=== PATIENT | female | born 1930 | race Caucasian/White ===

== ENCOUNTER 2018-12-05 10:22 | Observation (INO) | payer MEDICARE, BC ==
--- NOTE | 2018-12-05 10:48 | EDM.PDOC ---
ED HPI GENERAL MEDICAL PROBLEM - General Stated Complaint: LOSS OF CONSCIOUSNESS Time Seen by Provider: 12/05/18 10:45 Source of Information: Reports: Patient History Limitations: Reports: No Limitations - History of Present Illness INITIAL COMMENTS - FREE TEXT/NARRATIVE: 88-year-old female who reports that for the last 2-3 days she has been feeling "yucky". Apparently, this means that she has had decreased energy and she has had some nausea. She had vomiting times one yesterday afternoon and this morning at approximately 9:45 AM, she had a syncopal episode that lasted for about 3 minutes. No seizure activity was noted. She apparently did not fall and hit her head. She was sitting when this occurred. She has had no shortness of breath. She's had no chest pain. She has had persisting nausea. No abdominal pain. No known bowel movement for the past 2 days. No reports of dysuria or hematuria. The history comes from EMS report and from the patient's sons report and some from the patient but the patient is a rather poor historian. No fevers or chills. She has no pain now. She states she would rate her pain as a 0/10. She does report that she feels bad all over and weak. There are no other associated signs or symptoms. There are no other modifying factors. Onset: Other (Lasted 3 days. 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: Other Medication(s) (Patient was given Zofran on the way in by EMS with no apparent relief of her nausea.) - Related Data Allergies Allergy/AdvReac Type Severity Reaction Status Date / Time No Known Allergies Allergy Verified 12/05/18 10:43 Home Meds: Home Meds Aspirin 1 tab PO DAILY 12/05/18 [History] Calcium Carb&Cit/D3/Phytostrol [Citracal D + Heart Health] 1 tab PO DAILY [History] Cholestyramine/Sucrose [Cholestyramine] 1 packet PO DAILY 12/05/18 [History] Cyanocobalamin (Vitamin B12) [Vitamin B12] 1 injection IM ASDIRECTED 12/05/18 [ History] Ferrous Sulfate 1 tab PO DAILY 12/05/18 [History] Furosemide 1 tab PO BID 12/05/18 [History] Levothyroxine Sodium [Levo-T] 1 tab PO DAILY 12/05/18 [History] Loperamide HCl [Loperamide] 1 tab PO TID PRN 12/05/18 [History] Multivitamins [Tab-A-Karen] 1 tab PO DAILY 12/05/18 [History] Omeprazole 1 tab PO BID 12/05/18 [History] Potassium Chloride 1 tab PO DAILY 12/05/18 [History] atorvaSTATin Calcium [Lipitor] 1 tab PO BEDTIME 12/05/18 [History] metOLazone [Zaroxolyn] 1 tab PO ASDIRECTED 12/05/18 [History] Past Medical History HEENT History: Reports: Other (See Below) (BPPV) Cardiovascular History: Reports: Heart Failure, High Cholesterol, Hypertension, Other (See Below) (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) Gastrointestinal History: Reports: GERD Neurological History: Reports: CVA Endocrine/Metabolic History: Reports: Hypothyroidism Hematologic History: Reports: Anemia (With recent blood transfusion within the past 3 months.) - Past Surgical History GI Surgical History: Reports: Colonoscopy Musculoskeletal Surgical History: Reports: Hip Replacement (Bilateral), Knee Replacement (Bilateral) Social & Family History - Tobacco Use Smoking Status *Q: Never Smoker - Alcohol Use Alcohol Use History: No - Living Situation & Occupation Occupation: Retired Social History Comment: She is living in the [facility] for the past 3 months. She was living independently prior to this. Patient is a DNR/DNI. ED ROS GENERAL - Review of Systems Review Of Systems: See Below Constitutional: Reports: Malaise, Weakness, Fatigue HEENT: Reports: Other (Dry mouth) Respiratory: Reports: No Symptoms Cardiovascular: Reports: Syncope GI/Abdominal: Reports: Nausea, Vomiting : Reports: No Symptoms Musculoskeletal: Reports: Other (Chronic leg swelling that is less now) Skin: Reports: No Symptoms Neurological: Reports: Syncope. Denies: Headache Hematologic/Lymphatic: Reports: No Symptoms (She is on no chronic anticoagulation.) Immunologic: Reports: No Symptoms ED EXAM, GENERAL - Physical Exam Exam: See Below Free Text/Narrative:: There were no orthostatic changes in the patient's blood pressure or pulse. Exam Limited By: No Limitations General Appearance: Alert, WD/WN, Moderate Distress Eye Exam: Bilateral Eye: EOMI, Normal Inspection, PERRL Ears: Normal External Exam, Hearing Grossly Normal Ear Exam: Bilateral Ear: Auricle Normal Nose: Normal Inspection, Normal Mucosa, No Blood Throat/Mouth: Normal Voice, No Airway Compromise, Other (Dry mucous membranes) Head: Atraumatic, Normocephalic Neck: Normal Inspection, Supple, Non-Tender, Full Range of Motion Respiratory/Chest: No Respiratory Distress, Lungs Clear, Normal Breath Sounds, No Accessory Muscle Use, Chest Non-Tender Cardiovascular: Normal Peripheral Pulses, Regular Rate, Rhythm, No JVD, Systolic Murmur Peripheral Pulses: 2+: Radial (L), Radial (R) GI/Abdominal: Normal Bowel Sounds, Soft, Non-Tender (Palpation does provoke nausea, however.), No Mass Rectal (Female) Exam: Heme + Stool, Other (Maroon stool that was Hemoccult positive) Back Exam: Normal Inspection Extremities: Normal Range of Motion, Non-Tender, Normal Capillary Refill, Pedal Edema, Other (Both feet are wrapped with compression wraps.) Neurological: Alert, Oriented, CN II-XII Intact, No Motor/Sensory Deficits Skin Exam: Warm, Dry, Intact, Normal Color, No Rash EKG INTERPRETATION EKG Date: 12/05/18 Time: 10:30 Rhythm: NSR Rate (Beats/Min): 77 [place]: LAD-Left [place] Deviation P-Wave: Present QRS: LBBB ST-T: Other (Nonspecific ST-T changes) QT: Prolonged Comparison: NA - No Prior EKG (No old EKG for comparison.) Course - Vital Signs Last Recorded V/S: Last Vital Signs Temp 36.8 C 12/05/18 20:14 Pulse 84 12/05/18 20:14 Resp 18 12/05/18 20:14 BP 90/56 L 12/05/18 20:14 Pulse Ox 92 L 12/05/18 20:14 Orthostatic Blood Pressure [ 99/56 Standing] Orthostatic Blood Pressure [ 104/48 Sitting] Orthostatic Blood Pressure [ 106/45 Supine] - Orders/Labs/Meds Orders: Active Orders 24 hr Category Date Time Status EKG Documentation Completion [RC] ASDIRECTED Care 12/05/18 11:02 Active Orthostatic Vital Signs [RC] ASDIRECTED Care 12/05/18 11:04 Active Chest 1V Frontal [CR] Stat Exams 12/05/18 11:00 Taken CULTURE URINE [RM] Stat Lab 12/05/18 11:35 Received EKG 12 Lead [EK] Routine Ther 12/05/18 11:00 Ordered Medication Orders Acetaminophen (Tylenol) 650 mg PO Q4H PRN PRN Reason: Pain (Mild 1-3)/fever Furosemide (Lasix) 80 mg PO BID@0800,1400 [facility] Last Admin: 12/05/18 17:04 Dose: 80 mg Promethazine HCl 6.25 mg/ (Sodium Chloride) 50.25 mls @ 200 mls/hr IV Q6H PRN PRN Reason: Nausea/Vomiting Sodium Chloride (Normal Saline) 1,000 mls @ 50 mls/hr IV ASDIRECTED [facility] Last Admin: 12/05/18 12:48 Dose: 50 mls/hr Sodium Chloride (Normal Saline) 250 mls @ 100 mls/hr IV ASDIRECTED [facility] Last Admin: 12/05/18 17:56 Dose: 100 mls/hr Admin: 12/05/18 15:01 Dose: 100 mls/hr Levothyroxine Sodium (Levothyroxine) 175 mcg PO DAILY@0600 [facility] Pantoprazole Sodium (Protonix Iv) 40 mg IVPUSH Q24H [facility] Potassium Chloride (Klor-Con M20) 20 meq PO TID [facility] Last Admin: 12/05/18 20:30 Dose: 20 meq Admin: 12/05/18 17:03 Dose: 20 meq Sodium Chloride (Saline Flush) 10 ml FLUSH ASDIRECTED PRN PRN Reason: Keep Vein Open Labs: Laboratory Tests 12/05/18 12/05/18 12/05/18 Range/Units 10:20 10:20 10:20 WBC 10.4 (4.5-12.0) X10-3/uL RBC 2.48 L (3.23-5.20) x10(6)uL Hgb 7.3 L (11.5-15.5) g/dL Hct 21.9 L* (30.0-51.3) % MCV 88.6 (80-96) fL MCH 29.5 (27.7-33.6) pg MCHC 33.3 (32.2-35.4) g/dL RDW 14.3 (11.5-15.5) % Plt Count 318 (125-369) X10(3)uL MPV 7.6 (7.4-10.4) fL Neut % (Auto) 68.8 (46-82) % Lymph % (Auto) 15.2 (13-37) % [place] % (Auto) 14.4 H (4-12) % Eos % (Auto) 1 (1.0-5.0) % Baso % (Auto) 0 (0-2) % Neut # (Auto) 7.2 (1.6-8.3) # Lymph # (Auto) 1.6 (0.6-5.0) # [place] # (Auto) 1.5 H (0.0-1.3) # Eos # (Auto) 0.1 (0.0-0.8) # Baso # (Auto) 0.0 (0.0-0.2) # PT (8.7-11.1) INR (0.89-1.13) Sodium 135 (135-145) mmol/L Potassium 2.7 L* (3.5-5.3) mmol/L Chloride 96 L (100-110) mmol/L Carbon Dioxide 31 (21-32) mmol/L BUN 36 H (7-18) mg/dL Creatinine 1.3 H (0.55-1.02) mg/dL Est Cr Clr Drug Dosing 26.33 mL/min Estimated GFR (MDRD) 39 L (>60) BUN/Creatinine Ratio 27.7 H (9-20) Glucose 188 H (80-116) mg/dL Calcium 9.0 (8.6-10.2) mg/dL Magnesium 2.5 (1.8-2.5) mg/dL Total Bilirubin 0.5 (0.1-1.3) mg/dL AST 21 (5-25) IU/L ALT 27 (12-36) U/L Alkaline Phosphatase 92 (56-112) IU/L Troponin I 0.082 H* (<0.017-0.056) ng/mL Total Protein 6.9 (6.0-8.0) g/dL Albumin 3.3 (3.2-4.6) g/dL Globulin 3.6 g/dL Albumin/Globulin Ratio 0.9 Urine Color (YELLOW) Urine Appearance (CLEAR) Urine pH (5.0-6.5) Ur Specific [place] (1.010-1.025) Urine Protein (NEGATIVE) mg/dL Urine Glucose (UA) (NORMAL) mg/dL Urine Ketones (NEGATIVE) mg/dL Urine Occult Blood (NEGATIVE) Urine Nitrite (NEGATIVE) Urine Bilirubin (NEGATIVE) Urine Urobilinogen (NEGATIVE) mg/dL Ur Leukocyte Esterase (NEGATIVE) Urine RBC (0-5) Urine WBC (0-5) Ur Squamous Epith Cells (NS,R,O) Urine Bacteria (NS) 12/05/18 12/05/18 Range/Units 10:25 11:35 WBC (4.5-12.0) X10-3/uL RBC (3.23-5.20) x10(6)uL Hgb (11.5-15.5) g/dL Hct (30.0-51.3) % MCV (80-96) fL MCH (27.7-33.6) pg MCHC (32.2-35.4) g/dL RDW (11.5-15.5) % Plt Count (125-369) X10(3)uL MPV (7.4-10.4) fL Neut % (Auto) (46-82) % Lymph % (Auto) (13-37) % [place] % (Auto) (4-12) % Eos % (Auto) (1.0-5.0) % Baso % (Auto) (0-2) % Neut # (Auto) (1.6-8.3) # Lymph # (Auto) (0.6-5.0) # [place] # (Auto) (0.0-1.3) # Eos # (Auto) (0.0-0.8) # Baso # (Auto) (0.0-0.2) # PT 9.9 (8.7-11.1) INR 1.02 (0.89-1.13) Sodium (135-145) mmol/L Potassium (3.5-5.3) mmol/L Chloride (100-110) mmol/L Carbon Dioxide (21-32) mmol/L BUN (7-18) mg/dL Creatinine (0.55-1.02) mg/dL Est Cr Clr Drug Dosing mL/min Estimated GFR (MDRD) (>60) BUN/Creatinine Ratio (9-20) Glucose (80-116) mg/dL Calcium (8.6-10.2) mg/dL Magnesium (1.8-2.5) mg/dL Total Bilirubin (0.1-1.3) mg/dL AST (5-25) IU/L ALT (12-36) U/L Alkaline Phosphatase (56-112) IU/L Troponin I (<0.017-0.056) ng/mL Total Protein (6.0-8.0) g/dL Albumin (3.2-4.6) g/dL Globulin g/dL Albumin/Globulin Ratio Urine Color Yellow (YELLOW) Urine Appearance Clear (CLEAR) Urine pH 7.0 H (5.0-6.5) Ur Specific [place] 1.010 (1.010-1.025) Urine Protein Negative (NEGATIVE) mg/dL Urine Glucose (UA) Normal (NORMAL) mg/dL Urine Ketones Negative (NEGATIVE) mg/dL Urine Occult Blood Large H (NEGATIVE) Urine Nitrite Negative (NEGATIVE) Urine Bilirubin Negative (NEGATIVE) Urine Urobilinogen Normal (NEGATIVE) mg/dL Ur Leukocyte Esterase Negative (NEGATIVE) Urine RBC 10-20 H (0-5) Urine WBC 0-5 (0-5) Ur Squamous Epith Cells Few H (NS,R,O) Urine Bacteria Few H (NS) Meds: Medications Generic Name Dose Route Start Last Admin Trade Name Arvindq PRN Reason Stop Dose Admin Acetaminophen 650 mg 12/05/18 12:03 Tylenol PO Q4H PRN Pain (Mild 1-3)/fever Furosemide 80 mg 12/05/18 16:45 12/05/18 17:04 Lasix PO 80 mg BID@0800,1400 [facility] Administration Promethazine HCl 6.25 mg/ 50.25 mls @ 200 mls/hr 12/05/18 12:03 Sodium Chloride IV Q6H PRN Nausea/Vomiting Sodium Chloride 1,000 mls @ 50 mls/hr 12/05/18 12:15 12/05/18 12:48 Normal Saline IV 50 mls/hr ASDIRECTED [facility] Administration Sodium Chloride 250 mls @ 100 mls/hr 12/05/18 14:45 12/05/18 17:56 Normal Saline IV 100 mls/hr ASDIRECTED [facility] Administration Levothyroxine Sodium 175 mcg 12/06/18 06:00 Levothyroxine PO DAILY@0600 [facility] Pantoprazole Sodium 40 mg 12/06/18 12:00 Protonix Iv IVPUSH Q24H [facility] Potassium Chloride 20 meq 12/05/18 16:00 12/05/18 20:30 Klor-Con M20 PO 20 meq TID [facility] Administration Sodium Chloride 10 ml 12/05/18 12:46 Saline Flush FLUSH ASDIRECTED PRN Keep Vein Open Discontinued Medications Generic Name Dose Route Start Last Admin Trade Name Freq PRN Reason Stop Dose Admin Sodium Chloride 500 mls @ 999 mls/hr 12/05/18 11:03 12/05/18 11:52 Normal Saline IV 12/05/18 11:33 999 mls/hr .BOLUS ONE Administration Potassium Chloride 10 meq/ 100 mls @ 100 mls/hr 12/05/18 11:46 12/05/18 12:11 Premix IV 12/05/18 12:45 100 mls/hr ONETIME ONE Administration Sodium Chloride 250 mls @ 100 mls/hr 12/05/18 12:15 Normal Saline IV ASDIRECTED [facility] Metoclopramide HCl 10 mg 12/05/18 11:03 12/05/18 11:52 Reglan IVPUSH 12/05/18 11:04 10 mg ONETIME ONE Administration Pantoprazole Sodium 40 mg 12/05/18 11:46 12/05/18 12:15 Protonix Iv IVPUSH 12/05/18 11:47 40 mg ONETIME ONE Administration Potassium Chloride 20 meq 12/05/18 11:46 12/05/18 12:30 Potassium Chloride Solution PO 12/05/18 11:47 20 meq ONETIME ONE Administration - Re-Assessments/Exams Free Text/Narrative Re-Assessment/Exam: 12/05/18 11:45: Patient is feeling improved after IV fluids and Reglan IV. She has remained vitally stable. She did have a maroon colored stool which was Hemoccult positive. Patient with heme-positive stool and hemoglobin of 7. Her potassium was also 2.7. She will need admission for transfusion of packed red blood cells and for correction of her hypokalemia. She has been given Protonix IV and will be given oral potassium replacement and IV potassium replacement. She has been typed and crossed for 2 units of packed red blood cells to be transfused over time. 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 He reiterates with me that the patient is a DNR/DNI and she would want comfort measures only. They are agreeable to admission to our facility for management of these problems. Therefore I will discuss the patient's case with Dr. Ge for admission. 12/05/18 12:10: I have discussed the patient's case with Dr. Ge. He will admit the patient and will see the patient on the floor. I have placed interim admission orders with the order for transfusing 2 units of packed red blood cells. The patient and her son are in agreement with plans for admission. Departure - Departure Time of Disposition: 12:15 Disposition: Refer to Observation Condition: Fair Clinical Impression: Blood loss anemia, Hypokalemia, Elevated troponin Syncope Qualifiers: Syncope type: unspecified Qualified Code(s): R55 - Syncope and collapse GI hemorrhage Qualifiers: GI bleed type/associated pathology: unspecified gastrointestinal hemorrhage type Qualified Code(s): K92.2 - Gastrointestinal hemorrhage, unspecified - Discharge Information - My Orders Last 24 Hours: My Active Orders 12/05/18 11:00 Chest 1V Frontal [CR] Stat EKG 12 Lead [EK] Routine 12/05/18 11:02 EKG Documentation Completion [RC] ASDIRECTED 12/05/18 11:04 Orthostatic Vital Signs [RC] ASDIRECTED 12/05/18 11:35 CULTURE URINE [RM] Stat - Assessment/Plan Last 24 Hours: My Active Orders 12/05/18 11:00 Chest 1V Frontal [CR] Stat EKG 12 Lead [EK] Routine 12/05/18 11:02 EKG Documentation Completion [RC] ASDIRECTED 12/05/18 11:04 Orthostatic Vital Signs [RC] ASDIRECTED 12/05/18 11:35 CULTURE URINE [RM] Stat
[2018-12-05] MEDS ORDERED: Metoclopramide 10 MG/2 ML SDV IVPUSH ONE (11:03)
[2018-12-05] MEDS ORDERED: Sodium Chloride 0.9% 500 ML IV ONE (11:03)
[2018-12-05] MEDS ORDERED: Potassium Chloride 10% 20 MEQ/15 ML Soln 15 ML UD Cup PO ONE (11:46)
[2018-12-05] MEDS ORDERED: Potassium Chloride 10 MEQ in Premix Bag 1 BAG IV ONE (11:46)
[2018-12-05] MEDS ORDERED: Pantoprazole 40 MG Vial IVPUSH ONE (11:46)
[2018-12-05] MEDS ORDERED: Acetaminophen 325 MG Tab PO PRN (12:03)
[2018-12-05] MEDS ORDERED: Promethazine 6.25 MG in Sodium Chloride 0.9% 50 ML IV PRN (12:03)
[2018-12-05] MEDS ORDERED: Sodium Chloride 0.9% 250 ML IV SCH (12:15)
[2018-12-05] MEDS ORDERED: Sodium Chloride 0.9% 1,000 ML IV SCH (12:15)
[2018-12-05] MEDS ORDERED: Sodium Chloride 0.9% 10 ML Syringe FLUSH PRN (12:46)
--- NOTE | 2018-12-05 13:48 | PCM.HP.2 ---
H&P History of Present Illness - General Date of Service: 12/05/18 Admit Problem/Dx: Admission Diagnosis/Problem Admission Diagnosis/Problem Anemia due to blood loss Source of Information: Patient, Old Records History Limitations: Reports: No Limitations, Uncooperative - History of Present Illness Initial Comments - Free Text/Narative: This is 88-year-old female patient that recently moved from [facility] to be closer to her son. She delivered the [place] home. For the last 3 days she's felt . She has had nausea, vomiting and then she passed out for 3 minutes today. She is brought to the ER found to have a hemoglobin of 7. She denies chest pain although occasionally she says her chest get tight but hasn't recently. She says she was given some at the home and she didn't have a BM for several days and strained that she had some bleeding. Her son told the nurse that she had a EGD several years ago that was negative. 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 She denies abdominal pain, fevers, chills. She does take aspirin a day according to her records - Related Data Allergies/Adverse Reactions: Allergies Allergy/AdvReac Type Severity Reaction Status Date / Time No Known Allergies Allergy Verified 12/05/18 10:43 Home Medications: Home Meds Aspirin 1 tab PO DAILY 12/05/18 [History] Calcium Carb&Cit/D3/Phytostrol [Citracal D + Heart Health] 1 tab PO DAILY [History] Cholestyramine/Sucrose [Cholestyramine] 1 packet PO DAILY 12/05/18 [History] Cyanocobalamin (Vitamin B12) [Vitamin B12] 1 injection IM ASDIRECTED 12/05/18 [ History] Ferrous Sulfate 1 tab PO DAILY 12/05/18 [History] Furosemide 1 tab PO BID 12/05/18 [History] Levothyroxine Sodium [Levo-T] 1 tab PO DAILY 12/05/18 [History] Loperamide HCl [Loperamide] 1 tab PO TID PRN 12/05/18 [History] Multivitamins [Tab-A-Karen] 1 tab PO DAILY 12/05/18 [History] Omeprazole 1 tab PO BID 12/05/18 [History] Potassium Chloride 1 tab PO DAILY 12/05/18 [History] atorvaSTATin Calcium [Lipitor] 1 tab PO BEDTIME 12/05/18 [History] metOLazone [Zaroxolyn] 1 tab PO ASDIRECTED 12/05/18 [History] Past Medical History HEENT History: Reports: Other (See Below) (BPPV) Cardiovascular History: Reports: Heart Failure, High Cholesterol, Hypertension, Other (See Below) (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) Other Cardiovascular History: stenosis Gastrointestinal History: Reports: [employer] History: Reports: Other OB/BYN History: Musculoskeletal History: Reports: Arthritis Neurological History: Reports: CVA Endocrine/Metabolic History: Reports: Hypothyroidism Hematologic History: Reports: Anemia (With recent blood transfusion within the past 3 months.) Other Hematologic History: pernicious anemia - Infectious Disease History Infectious Disease History: Reports: Mumps - Past Surgical History GI Surgical History: Reports: Colonoscopy Musculoskeletal Surgical History: Reports: Hip Replacement (Bilateral), Knee Replacement (Bilateral) Social & Family History - Family History Family Medical History: Noncontributory - Tobacco Use Smoking Status *Q: Never Smoker - Caffeine Use Caffeine Use: Reports: Coffee, Tea - Recreational Drug Use Recreational Drug Use: No - Living Situation & Occupation Occupation: Retired H&P Review of Systems - Review of Systems: Review Of Systems: See Below General: Reports: No Symptoms HEENT: Reports: No Symptoms Pulmonary: Reports: No Symptoms Cardiovascular: Reports: No Symptoms Gastrointestinal: Reports: Hematochezia, Nausea, Vomiting Genitourinary: Reports: No Symptoms Musculoskeletal: Reports: No Symptoms Skin: Reports: No Symptoms Psychiatric: Reports: No Symptoms Neurological: Reports: No Symptoms Hematologic/Lymphatic: Reports: No Symptoms Immunologic: Reports: No Symptoms Exam - Exam Exam: See Below - Vital Signs Vital Signs: Last Vital Signs Temp 96.4 F 12/05/18 10:22 Pulse 81 12/05/18 12:45 Resp 15 12/05/18 12:45 BP 97/37 L 12/05/18 12:45 Pulse Ox 97 12/05/18 12:45 Orthostatic Blood Pressure [ 99/56 Standing] Orthostatic Blood Pressure [ 104/48 Sitting] Orthostatic Blood Pressure [ 106/45 Supine] Weight: 170 lb - Exam General: Alert, Oriented, Cooperative HEENT: Mucosa Moist & [place], Posterior Pharynx Clear Neck: Supple, Trachea Midline. No: Carotid Bruit Lungs: Clear to Auscultation, Normal Respiratory Effort Cardiovascular: Regular Rate, Regular Rhythm, Systolic Murmur GI/Abdominal Exam: Normal Bowel Sounds, Soft, Non-Tender, No Organomegaly, No Distention, No Abnormal Bruit, No Mass Extremities: Normal Inspection, No Pedal Edema Skin: Warm, Intact Neurological: Normal Tone Neuro Extensive - Mental Status: Alert, Normal Mood/Affect Psychiatric: Alert, Normal Affect, Normal Mood - Patient Data Lab Results Last 24 hrs: Laboratory Results - last 24 hr 12/05/18 12/05/18 12/05/18 Range/Units 10:20 10:20 10:20 WBC 10.4 (4.5-12.0) X10-3/uL RBC 2.48 L (3.23-5.20) x10(6)uL Hgb 7.3 L (11.5-15.5) g/dL Hct 21.9 L* (30.0-51.3) % MCV 88.6 (80-96) fL MCH 29.5 (27.7-33.6) pg MCHC 33.3 (32.2-35.4) g/dL RDW 14.3 (11.5-15.5) % Plt Count 318 (125-369) X10(3)uL MPV 7.6 (7.4-10.4) fL Neut % (Auto) 68.8 (46-82) % Lymph % (Auto) 15.2 (13-37) % Pershing % (Auto) 14.4 H (4-12) % Eos % (Auto) 1 (1.0-5.0) % Baso % (Auto) 0 (0-2) % Neut # (Auto) 7.2 (1.6-8.3) # Lymph # (Auto) 1.6 (0.6-5.0) # Pershing # (Auto) 1.5 H (0.0-1.3) # Eos # (Auto) 0.1 (0.0-0.8) # Baso # (Auto) 0.0 (0.0-0.2) # PT (8.7-11.1) INR (0.89-1.13) Sodium 135 (135-145) mmol/L Potassium 2.7 L* (3.5-5.3) mmol/L Chloride 96 L (100-110) mmol/L Carbon Dioxide 31 (21-32) mmol/L BUN 36 H (7-18) mg/dL Creatinine 1.3 H (0.55-1.02) mg/dL Est Cr Clr Drug Dosing 26.33 mL/min Estimated GFR (MDRD) 39 L (>60) BUN/Creatinine Ratio 27.7 H (9-20) Glucose 188 H (80-116) mg/dL Calcium 9.0 (8.6-10.2) mg/dL Magnesium 2.5 (1.8-2.5) mg/dL Total Bilirubin 0.5 (0.1-1.3) mg/dL AST 21 (5-25) IU/L ALT 27 (12-36) U/L Alkaline Phosphatase 92 (56-112) IU/L Troponin I 0.082 H* (<0.017-0.056) ng/mL Total Protein 6.9 (6.0-8.0) g/dL Albumin 3.3 (3.2-4.6) g/dL Globulin 3.6 g/dL Albumin/Globulin Ratio 0.9 Urine Color (YELLOW) Urine Appearance (CLEAR) Urine pH (5.0-6.5) Ur Specific [place] (1.010-1.025) Urine Protein (NEGATIVE) mg/dL Urine Glucose (UA) (NORMAL) mg/dL Urine Ketones (NEGATIVE) mg/dL Urine Occult Blood (NEGATIVE) Urine Nitrite (NEGATIVE) Urine Bilirubin (NEGATIVE) Urine Urobilinogen (NEGATIVE) mg/dL Ur Leukocyte Esterase (NEGATIVE) Urine RBC (0-5) Urine WBC (0-5) Ur Squamous Epith Cells (NS,R,O) Urine Bacteria (NS) Blood Type Gel Antibody Screen Crossmatch 12/05/18 12/05/18 12/05/18 Range/Units 10:25 11:35 12:26 WBC (4.5-12.0) X10-3/uL RBC (3.23-5.20) x10(6)uL Hgb (11.5-15.5) g/dL Hct (30.0-51.3) % MCV (80-96) fL MCH (27.7-33.6) pg MCHC (32.2-35.4) g/dL RDW (11.5-15.5) % Plt Count (125-369) X10(3)uL MPV (7.4-10.4) fL Neut % (Auto) (46-82) % Lymph % (Auto) (13-37) % Pershing % (Auto) (4-12) % Eos % (Auto) (1.0-5.0) % Baso % (Auto) (0-2) % Neut # (Auto) (1.6-8.3) # Lymph # (Auto) (0.6-5.0) # Pershing # (Auto) (0.0-1.3) # Eos # (Auto) (0.0-0.8) # Baso # (Auto) (0.0-0.2) # PT 9.9 (8.7-11.1) INR 1.02 (0.89-1.13) Sodium (135-145) mmol/L Potassium (3.5-5.3) mmol/L Chloride (100-110) mmol/L Carbon Dioxide (21-32) mmol/L BUN (7-18) mg/dL Creatinine (0.55-1.02) mg/dL Est Cr Clr Drug Dosing mL/min Estimated GFR (MDRD) (>60) BUN/Creatinine Ratio (9-20) Glucose (80-116) mg/dL Calcium (8.6-10.2) mg/dL Magnesium (1.8-2.5) mg/dL Total Bilirubin (0.1-1.3) mg/dL AST (5-25) IU/L ALT (12-36) U/L Alkaline Phosphatase (56-112) IU/L Troponin I (<0.017-0.056) ng/mL Total Protein (6.0-8.0) g/dL Albumin (3.2-4.6) g/dL Globulin g/dL Albumin/Globulin Ratio Urine Color Yellow (YELLOW) Urine Appearance Clear (CLEAR) Urine pH 7.0 H (5.0-6.5) Ur Specific [place] 1.010 (1.010-1.025) Urine Protein Negative (NEGATIVE) mg/dL Urine Glucose (UA) Normal (NORMAL) mg/dL Urine Ketones Negative (NEGATIVE) mg/dL Urine Occult Blood Large H (NEGATIVE) Urine Nitrite Negative (NEGATIVE) Urine Bilirubin Negative (NEGATIVE) Urine Urobilinogen Normal (NEGATIVE) mg/dL Ur Leukocyte Esterase Negative (NEGATIVE) Urine RBC 10-20 H (0-5) Urine WBC 0-5 (0-5) Ur Squamous Epith Cells Few H (NS,R,O) Urine Bacteria Few H (NS) Blood Type A NEGATIVE Gel Antibody Screen Negative Crossmatch See Detail Result Diagrams: 12/05/18 10:20 12/05/18 10:20 Minda Results Last 24 hrs: Microbiology 12/05/18 11:35 Stool Occult Blood (MINDA) - Final Stool / Feces - Problem List (1) Elevated troponin SNOMED Code(s): 411131453, 921678623, 414779994 ICD Code: R74.8 - ABNORMAL LEVELS OF OTHER SERUM ENZYMES Status: Acute Current Visit: Yes (2) Hypokalemia SNOMED Code(s): 39713819 ICD Code: E87.6 - HYPOKALEMIA Status: Acute Current Visit: Yes (3) Blood loss anemia SNOMED Code(s): 716137347 ICD Code: D50.0 - IRON DEFICIENCY ANEMIA SECONDARY TO BLOOD LOSS (CHRONIC) Status: Acute Current Visit: Yes (4) Hypokalemia SNOMED Code(s): 08599050 ICD Code: E87.6 - HYPOKALEMIA Status: Acute Current Visit: Yes (5) Syncope SNOMED Code(s): 038260529 ICD Code: R55 - SYNCOPE AND COLLAPSE Status: Acute Current Visit: Yes Qualifiers: Syncope type: unspecified Qualified Code(s): R55 - Syncope and collapse (6) Palliative care status SNOMED Code(s): 052992339 ICD Code: Z51.5 - ENCOUNTER FOR PALLIATIVE CARE Status: Acute Current Visit: Yes Problem List Initiated/Reviewed/Updated: Yes Orders Last 24hrs: Active Orders 24 hr Category Date Time Status Admission Status [Patient Status] [ADT] Routine ADT 12/05/18 11:56 Active Blood Glucose Check, Bedside [RC] QIDACANDBED Care 12/05/18 12:03 Inactive Cardiac Monitoring [RC] .As Directed Care 12/05/18 11:56 Active EKG Documentation Completion [RC] ASDIRECTED Care 12/05/18 11:02 Active Height and Weight [RC] DAILY Care 12/05/18 12:03 Active Intake and Output [RC] QSHIFT Care 12/05/18 12:04 Active Orthostatic Vital Signs [RC] ASDIRECTED Care 12/05/18 11:04 Active Oxygen Therapy [RC] PRN Care 12/05/18 12:04 Active Pulse Oximetry [RC] PRN Care 12/05/18 12:04 Active Up With Assistance [RC] ASDIRECTED Care 12/05/18 12:03 Active Up With Assistance [RC] ASDIRECTED Care 12/05/18 13:36 Ordered VTE/DVT Education [RC] Per Unit Routine Care 12/05/18 12:04 Active Vital Signs [RC] Q4H Care 12/05/18 12:04 Active Consult to Palliative Care [CONS] Routine Cons 12/05/18 12:11 Active Full Liquid Diet [DIET] Diet 12/05/18 Lunch Ordered Chest 1V Frontal [CR] Stat Exams 12/05/18 11:00 Taken CULTURE URINE [RM] Stat Lab 12/05/18 11:35 Received PATIENT RETYPE [BBK] Stat Lab 12/05/18 12:26 Results RED BLOOD CELLS LP [BBK] Routine Lab 12/05/18 12:26 Results TYPE AND SCREEN [BBK] Stat Lab 12/05/18 12:26 Results Acetaminophen [Tylenol] Med 12/05/18 12:03 Active 650 mg PO Q4H PRN Furosemide [Lasix] Med 12/05/18 21:00 Ordered 80 mg PO BID Levothyroxine Med 12/06/18 09:00 Ordered 175 mcg PO DAILY Pantoprazole [ProTONIX IV] Med 12/05/18 13:45 Ordered 40 mg IVPUSH Q24H Potassium Chloride [Klor-Con M20] Med 12/05/18 16:00 Ordered 20 meq PO TID Promethazine [Phenergan] 6.25 mg Med 12/05/18 12:03 Active Sodium Chloride 0.9% [Normal Saline] 50 ml IV Q6H Sodium Chloride 0.9% [Normal Saline] 1,000 ml Med 12/05/18 12:15 Active IV ASDIRECTED Sodium Chloride 0.9% [Saline Flush] Med 12/05/18 12:46 Active 10 ml FLUSH ASDIRECTED PRN Peripheral IV Insertion Adult [OM.PC] Routine Oth 12/05/18 12:46 Ordered Transfuse PRBC [Transfuse Red Blood Cells] [COMM] Oth 12/05/18 12:06 Ordered Routine Resuscitation Status Routine Resus Stat 12/05/18 12:03 Ordered EKG 12 Lead [EK] Routine Ther 12/05/18 11:00 Ordered Medication Orders Acetaminophen (Tylenol) 650 mg PO Q4H PRN PRN Reason: Pain (Mild 1-3)/fever Furosemide (Lasix) 80 mg PO BID WHITNEY Promethazine HCl 6.25 mg/ (Sodium Chloride) 50.25 mls @ 200 mls/hr IV Q6H PRN PRN Reason: Nausea/Vomiting Sodium Chloride (Normal Saline) 1,000 mls @ 50 mls/hr IV ASDIRECTED WHITNEY Last Admin: 12/05/18 12:48 Dose: 50 mls/hr Levothyroxine Sodium (Levothyroxine) 175 mcg PO DAILY WHITNEY Pantoprazole Sodium (Protonix Iv) 40 mg IVPUSH Q24H WHITNEY Potassium Chloride (Klor-Con M20) 20 meq PO TID WHITNEY Sodium Chloride (Saline Flush) 10 ml FLUSH ASDIRECTED PRN PRN Reason: Keep Vein Open Assessment/Plan Comment:: 1 admit for observation. 2. ER doc doctor about CODE STATUS is just a DNR/DNI 3. Telemetry 4. Clear liquid diet 5. Hold aspirin 6. For VTE prophylaxis use SCDs. Hold Lovenox due to GI bleed 7. Protonix IV 8. 2 units of RBCs. Risk benefits explained to the patient and she wants to proceed. 9. Up with assist. 10. Repeat hemoglobin 1 hour after the transfusion. If it's greater than 9 to call. 11. Trend EKG and troponin.
[2018-12-05] MEDS: Sodium Chloride 0.9% 250 ML IV SCH ×2 (15:01→17:56)
[2018-12-05] MEDS: POTASSIUM CHLORIDE 20 MEQ PO SCH ×2 (17:03→20:30)
[2018-12-05] MEDS: FUROSEMIDE 80 MG PO SCH (17:04)
[2018-12-06] MEDS ORDERED: Levothyroxine 75 MCG Tab ONE (05:43)
[2018-12-06] MEDS: Levothyroxine 100 MCG Tab ONE ×2 (05:57→05:58)
--- NOTE | 2018-12-06 08:07 | PCM.PN ---
- General Info Date of Service: 12/06/18 Admission Dx/Problem (Free Text): Patient without complaints. She denies nausea, dizziness, chest pain or leg swelling. - Patient Data Vitals - Most Recent: Last Vital Signs Temp 97.9 F 12/06/18 03:55 Pulse 70 12/06/18 03:55 Resp 17 12/06/18 03:55 BP 94/41 L 12/06/18 03:55 Pulse Ox 95 12/06/18 03:55 Orthostatic Blood Pressure [ 99/56 Standing] Orthostatic Blood Pressure [ 104/48 Sitting] Orthostatic Blood Pressure [ 106/45 Supine] Weight - Most Recent: 170 lb I&O - Last 24 Hours: Intake & Output 12/05/18 12/06/18 12/06/18 22:59 06:59 14:59 Intake Total 787 701 Output Total 0 Balance 787 701 Lab Results Last 24 Hours: Laboratory Results - last 24 hr 12/05/18 12/05/18 12/05/18 Range/Units 10:20 10:20 10:20 WBC 10.4 (4.5-12.0) X10-3/uL RBC 2.48 L (3.23-5.20) x10(6)uL Hgb 7.3 L (11.5-15.5) g/dL Hct 21.9 L* (30.0-51.3) % MCV 88.6 (80-96) fL MCH 29.5 (27.7-33.6) pg MCHC 33.3 (32.2-35.4) g/dL RDW 14.3 (11.5-15.5) % Plt Count 318 (125-369) X10(3)uL MPV 7.6 (7.4-10.4) fL Neut % (Auto) 68.8 (46-82) % Lymph % (Auto) 15.2 (13-37) % [place] % (Auto) 14.4 H (4-12) % Eos % (Auto) 1 (1.0-5.0) % Baso % (Auto) 0 (0-2) % Neut # (Auto) 7.2 (1.6-8.3) # Lymph # (Auto) 1.6 (0.6-5.0) # [place] # (Auto) 1.5 H (0.0-1.3) # Eos # (Auto) 0.1 (0.0-0.8) # Baso # (Auto) 0.0 (0.0-0.2) # PT (8.7-11.1) INR (0.89-1.13) Sodium 135 (135-145) mmol/L Potassium 2.7 L* (3.5-5.3) mmol/L Chloride 96 L (100-110) mmol/L Carbon Dioxide 31 (21-32) mmol/L BUN 36 H (7-18) mg/dL Creatinine 1.3 H (0.55-1.02) mg/dL Est Cr Clr Drug Dosing 26.33 mL/min Estimated GFR (MDRD) 39 L (>60) BUN/Creatinine Ratio 27.7 H (9-20) Glucose 188 H (80-116) mg/dL Calcium 9.0 (8.6-10.2) mg/dL Magnesium 2.5 (1.8-2.5) mg/dL Total Bilirubin 0.5 (0.1-1.3) mg/dL AST 21 (5-25) IU/L ALT 27 (12-36) U/L Alkaline Phosphatase 92 (56-112) IU/L Troponin I 0.082 H* (<0.017-0.056) ng/mL Total Protein 6.9 (6.0-8.0) g/dL Albumin 3.3 (3.2-4.6) g/dL Globulin 3.6 g/dL Albumin/Globulin Ratio 0.9 Urine Color (YELLOW) Urine Appearance (CLEAR) Urine pH (5.0-6.5) Ur Specific [place] (1.010-1.025) Urine Protein (NEGATIVE) mg/dL Urine Glucose (UA) (NORMAL) mg/dL Urine Ketones (NEGATIVE) mg/dL Urine Occult Blood (NEGATIVE) Urine Nitrite (NEGATIVE) Urine Bilirubin (NEGATIVE) Urine Urobilinogen (NEGATIVE) mg/dL Ur Leukocyte Esterase (NEGATIVE) Urine RBC (0-5) Urine WBC (0-5) Ur Squamous Epith Cells (NS,R,O) Urine Bacteria (NS) Blood Type Gel Antibody Screen Crossmatch 12/05/18 12/05/18 12/05/18 Range/Units 10:25 11:35 12:26 WBC (4.5-12.0) X10-3/uL RBC (3.23-5.20) x10(6)uL Hgb (11.5-15.5) g/dL Hct (30.0-51.3) % MCV (80-96) fL MCH (27.7-33.6) pg MCHC (32.2-35.4) g/dL RDW (11.5-15.5) % Plt Count (125-369) X10(3)uL MPV (7.4-10.4) fL Neut % (Auto) (46-82) % Lymph % (Auto) (13-37) % [place] % (Auto) (4-12) % Eos % (Auto) (1.0-5.0) % Baso % (Auto) (0-2) % Neut # (Auto) (1.6-8.3) # Lymph # (Auto) (0.6-5.0) # [place] # (Auto) (0.0-1.3) # Eos # (Auto) (0.0-0.8) # Baso # (Auto) (0.0-0.2) # PT 9.9 (8.7-11.1) INR 1.02 (0.89-1.13) Sodium (135-145) mmol/L Potassium (3.5-5.3) mmol/L Chloride (100-110) mmol/L Carbon Dioxide (21-32) mmol/L BUN (7-18) mg/dL Creatinine (0.55-1.02) mg/dL Est Cr Clr Drug Dosing mL/min Estimated GFR (MDRD) (>60) BUN/Creatinine Ratio (9-20) Glucose (80-116) mg/dL Calcium (8.6-10.2) mg/dL Magnesium (1.8-2.5) mg/dL Total Bilirubin (0.1-1.3) mg/dL AST (5-25) IU/L ALT (12-36) U/L Alkaline Phosphatase (56-112) IU/L Troponin I (<0.017-0.056) ng/mL Total Protein (6.0-8.0) g/dL Albumin (3.2-4.6) g/dL Globulin g/dL Albumin/Globulin Ratio Urine Color Yellow (YELLOW) Urine Appearance Clear (CLEAR) Urine pH 7.0 H (5.0-6.5) Ur Specific [place] 1.010 (1.010-1.025) Urine Protein Negative (NEGATIVE) mg/dL Urine Glucose (UA) Normal (NORMAL) mg/dL Urine Ketones Negative (NEGATIVE) mg/dL Urine Occult Blood Large H (NEGATIVE) Urine Nitrite Negative (NEGATIVE) Urine Bilirubin Negative (NEGATIVE) Urine Urobilinogen Normal (NEGATIVE) mg/dL Ur Leukocyte Esterase Negative (NEGATIVE) Urine RBC 10-20 H (0-5) Urine WBC 0-5 (0-5) Ur Squamous Epith Cells Few H (NS,R,O) Urine Bacteria Few H (NS) Blood Type A NEGATIVE Gel Antibody Screen Negative Crossmatch See Detail 12/05/18 12/05/18 12/06/18 Range/Units 21:00 21:00 00:15 WBC (4.5-12.0) X10-3/uL RBC (3.23-5.20) x10(6)uL Hgb 8.6 L 8.3 L (11.5-15.5) g/dL Hct (30.0-51.3) % MCV (80-96) fL MCH (27.7-33.6) pg MCHC (32.2-35.4) g/dL RDW (11.5-15.5) % Plt Count (125-369) X10(3)uL MPV (7.4-10.4) fL Neut % (Auto) (46-82) % Lymph % (Auto) (13-37) % [place] % (Auto) (4-12) % Eos % (Auto) (1.0-5.0) % Baso % (Auto) (0-2) % Neut # (Auto) (1.6-8.3) # Lymph # (Auto) (0.6-5.0) # [place] # (Auto) (0.0-1.3) # Eos # (Auto) (0.0-0.8) # Baso # (Auto) (0.0-0.2) # PT (8.7-11.1) INR (0.89-1.13) Sodium (135-145) mmol/L Potassium (3.5-5.3) mmol/L Chloride (100-110) mmol/L Carbon Dioxide (21-32) mmol/L BUN (7-18) mg/dL Creatinine (0.55-1.02) mg/dL Est Cr Clr Drug Dosing mL/min Estimated GFR (MDRD) (>60) BUN/Creatinine Ratio (9-20) Glucose (80-116) mg/dL Calcium (8.6-10.2) mg/dL Magnesium (1.8-2.5) mg/dL Total Bilirubin (0.1-1.3) mg/dL AST (5-25) IU/L ALT (12-36) U/L Alkaline Phosphatase (56-112) IU/L Troponin I 0.104 H* (<0.017-0.056) ng/mL Total Protein (6.0-8.0) g/dL Albumin (3.2-4.6) g/dL Globulin g/dL Albumin/Globulin Ratio Urine Color (YELLOW) Urine Appearance (CLEAR) Urine pH (5.0-6.5) Ur Specific [place] (1.010-1.025) Urine Protein (NEGATIVE) mg/dL Urine Glucose (UA) (NORMAL) mg/dL Urine Ketones (NEGATIVE) mg/dL Urine Occult Blood (NEGATIVE) Urine Nitrite (NEGATIVE) Urine Bilirubin (NEGATIVE) Urine Urobilinogen (NEGATIVE) mg/dL Ur Leukocyte Esterase (NEGATIVE) Urine RBC (0-5) Urine WBC (0-5) Ur Squamous Epith Cells (NS,R,O) Urine Bacteria (NS) Blood Type Gel Antibody Screen Crossmatch 12/06/18 12/06/18 Range/Units 04:20 04:20 WBC (4.5-12.0) X10-3/uL RBC (3.23-5.20) x10(6)uL Hgb 8.9 L (11.5-15.5) g/dL Hct (30.0-51.3) % MCV (80-96) fL MCH (27.7-33.6) pg MCHC (32.2-35.4) g/dL RDW (11.5-15.5) % Plt Count (125-369) X10(3)uL MPV (7.4-10.4) fL Neut % (Auto) (46-82) % Lymph % (Auto) (13-37) % [place] % (Auto) (4-12) % Eos % (Auto) (1.0-5.0) % Baso % (Auto) (0-2) % Neut # (Auto) (1.6-8.3) # Lymph # (Auto) (0.6-5.0) # [place] # (Auto) (0.0-1.3) # Eos # (Auto) (0.0-0.8) # Baso # (Auto) (0.0-0.2) # PT (8.7-11.1) INR (0.89-1.13) Sodium 141 (135-145) mmol/L Potassium 3.7 D (3.5-5.3) mmol/L Chloride 104 D (100-110) mmol/L Carbon Dioxide 30 (21-32) mmol/L BUN 25 H D (7-18) mg/dL Creatinine 1.0 (0.55-1.02) mg/dL Est Cr Clr Drug Dosing 34.23 mL/min Estimated GFR (MDRD) 52 L (>60) BUN/Creatinine Ratio 25.0 H (9-20) Glucose 92 D (80-116) mg/dL Calcium 8.6 (8.6-10.2) mg/dL Magnesium (1.8-2.5) mg/dL Total Bilirubin (0.1-1.3) mg/dL AST (5-25) IU/L ALT (12-36) U/L Alkaline Phosphatase (56-112) IU/L Troponin I (<0.017-0.056) ng/mL Total Protein (6.0-8.0) g/dL Albumin (3.2-4.6) g/dL Globulin g/dL Albumin/Globulin Ratio Urine Color (YELLOW) Urine Appearance (CLEAR) Urine pH (5.0-6.5) Ur Specific [place] (1.010-1.025) Urine Protein (NEGATIVE) mg/dL Urine Glucose (UA) (NORMAL) mg/dL Urine Ketones (NEGATIVE) mg/dL Urine Occult Blood (NEGATIVE) Urine Nitrite (NEGATIVE) Urine Bilirubin (NEGATIVE) Urine Urobilinogen (NEGATIVE) mg/dL Ur Leukocyte Esterase (NEGATIVE) Urine RBC (0-5) Urine WBC (0-5) Ur Squamous Epith Cells (NS,R,O) Urine Bacteria (NS) Blood Type Gel Antibody Screen Crossmatch David Results Last 24 Hours: Microbiology 12/05/18 11:35 Urine Culture - Preliminary Urine, Catheterized No Growth 12/05/18 11:35 Stool Occult Blood (DAVID) - Final Stool / Feces Med Orders - Current: Current Medications Acetaminophen (Tylenol) 650 mg PO Q4H PRN PRN Reason: Pain (Mild 1-3)/fever Furosemide (Lasix) 80 mg PO BID@0800,1400 [facility] Last Admin: 12/05/18 17:04 Dose: 80 mg Promethazine HCl 6.25 mg/ (Sodium Chloride) 50.25 mls @ 200 mls/hr IV Q6H PRN PRN Reason: Nausea/Vomiting Sodium Chloride (Normal Saline) 1,000 mls @ 50 mls/hr IV ASDIRECTED [facility] Last Admin: 12/05/18 12:48 Dose: 50 mls/hr Levothyroxine Sodium (Levothyroxine) 175 mcg PO DAILY@0600 [facility] Last Admin: 12/06/18 05:58 Dose: 175 mcg Pantoprazole Sodium (Protonix Iv) 40 mg IVPUSH Q24H [facility] Potassium Chloride (Klor-Con M20) 20 meq PO BID [facility] Sodium Chloride (Saline Flush) 10 ml FLUSH ASDIRECTED PRN PRN Reason: Keep Vein Open Discontinued Medications Sodium Chloride (Normal Saline) 500 mls @ 999 mls/hr IV .BOLUS ONE Stop: 12/05/18 11:33 Last Admin: 12/05/18 11:52 Dose: 999 mls/hr Potassium Chloride 10 meq/ (Premix) 100 mls @ 100 mls/hr IV ONETIME ONE Stop: 12/05/18 12:45 Last Admin: 12/05/18 12:11 Dose: 100 mls/hr Sodium Chloride (Normal Saline) 250 mls @ 100 mls/hr IV ASDIRECTED [facility] Sodium Chloride (Normal Saline) 250 mls @ 100 mls/hr IV ASDIRECTED [facility] Last Admin: 12/05/18 17:56 Dose: 100 mls/hr Levothyroxine Sodium (Synthroid) Confirm Administered Dose 100 mcg .ROUTE .STK- MED ONE Stop: 12/06/18 05:43 Last Admin: 12/06/18 05:58 Dose: 100 mcg Levothyroxine Sodium (Levothyroxine) Confirm Administered Dose 75 mcg .ROUTE .STK-MED ONE Stop: 12/06/18 05:44 Last Admin: 12/06/18 05:57 Dose: Not Given Metoclopramide HCl (Reglan) 10 mg IVPUSH ONETIME ONE Stop: 12/05/18 11:04 Last Admin: 12/05/18 11:52 Dose: 10 mg Pantoprazole Sodium (Protonix Iv) 40 mg IVPUSH ONETIME ONE Stop: 12/05/18 11:47 Last Admin: 12/05/18 12:15 Dose: 40 mg Potassium Chloride (Potassium Chloride Solution) 20 meq PO ONETIME ONE Stop: 12/05/18 11:47 Last Admin: 12/05/18 12:30 Dose: 20 meq Potassium Chloride (Klor-Con M20) 20 meq PO TID [facility] Last Admin: 12/05/18 20:30 Dose: 20 meq - Exam General: Alert, Cooperative Lungs: Clear to Auscultation, Normal Respiratory Effort Cardiovascular: Regular Rate, Regular Rhythm, No Murmurs Extremities: No Pedal Edema - Problem List & Annotations (1) Elevated troponin SNOMED Code(s): 871929447, 139661330, 738762342 Code(s): R74.8 - ABNORMAL LEVELS OF OTHER SERUM ENZYMES Status: Acute Current Visit: Yes (2) Hypokalemia SNOMED Code(s): 55226118 Code(s): E87.6 - HYPOKALEMIA Status: Acute Current Visit: Yes (3) Blood loss anemia SNOMED Code(s): 358133309 Code(s): D50.0 - IRON DEFICIENCY ANEMIA SECONDARY TO BLOOD LOSS (CHRONIC) Status: Acute Current Visit: Yes (4) Hypokalemia SNOMED Code(s): 93204091 Code(s): E87.6 - HYPOKALEMIA Status: Acute Current Visit: Yes (5) Syncope SNOMED Code(s): 039311727 Code(s): R55 - SYNCOPE AND COLLAPSE Status: Acute Current Visit: Yes Qualifiers: Syncope type: unspecified Qualified Code(s): R55 - Syncope and collapse (6) Palliative care status SNOMED Code(s): 643427099 Code(s): Z51.5 - ENCOUNTER FOR PALLIATIVE CARE Status: Acute Current Visit: Yes (7) Elevated troponin SNOMED Code(s): 632969181, 224316644, 327996985 Code(s): R74.8 - ABNORMAL LEVELS OF OTHER SERUM ENZYMES Status: Acute Current Visit: Yes - Problem List Review Problem List Initiated/Reviewed/Updated: Yes - My Orders Last 24 Hours: My Active Orders 12/05/18 13:36 Up With Assistance [RC] ASDIRECTED 12/05/18 13:50 EKG Documentation Completion [RC] ASDIRECTED 12/05/18 14:08 Communication Order [RC] ASDIRECTED Sequential Compression Device [OM.PC] Routine 12/05/18 16:45 Furosemide [Lasix] 80 mg PO BID@0800,1400 12/05/18 18:00 EKG 12 Lead [EK] Routine 12/06/18 04:20 TROPONIN I [CHEM] Routine 12/06/18 06:00 Levothyroxine 175 mcg PO DAILY@0600 12/06/18 08:03 Convert IV to Saline Lock [OM.PC] Routine 12/06/18 09:00 Polyethylene Glycol 3350 [MiraLAX] 17 gm PO DAILY Potassium Chloride [Klor-Con M20] 20 meq PO BID 12/06/18 12:00 Pantoprazole [ProTONIX IV] 40 mg IVPUSH Q24H 12/06/18 Lunch Cardiac Diet [Heart Healthy Diet] [DIET] - Plan Plan:: 1 DC IV fluids and saline lock IV 2. Up in chair and up with assist and ambulate frequently. 3. DC daily weights 4. Troponin 5. DC serial hemoglobins. Check one today at 4 PM. 6. Advance diet to cardiac diet. 7. Continue telemetry.
[2018-12-06] MEDS: FUROSEMIDE 80 MG PO SCH ×2 (09:17→14:36)
[2018-12-06] MEDS: Potassium Chloride 20 MEQ Tab.ER *PTOM PO SCH ×2 (09:18→22:11)
[2018-12-06] MEDS: Polyethylene Glycol 3350 Powder 17 GM Packet PO SCH (09:18)
--- NOTE | 2018-12-06 11:08 | CR ---
INDICATION: Syncope. CHEST: An AP upright view of the chest was obtained portable, 12/05/18 - no comparisons. The heart appeared enlarged. No definite evidence of CHF is seen. The aorta is somewhat tortuous with calcification in the arch. Overlying EKG leads are noted. There appears to be some minimal infiltrate and effusions at both lung bases, which may be on the basis of pneumonia and pleuritis and should be correlated clinically. Findings are more prominent on the right than left. Hyperaeration is also noted with somewhat flattened diaphragm leaves, suggesting COPD. IMPRESSION: 1. Bibasilar pleural parenchymal changes, suggesting pneumonia and pleuritis - correlate clinically. 2. ASHD. 3. Probable COPD - correlate clinically. MTDD
[2018-12-06] MEDS ORDERED: Pantoprazole 40 MG Vial IVPUSH SCH (12:00)
[2018-12-07] MEDS: Polyethylene Glycol 3350 Powder 17 GM Packet PO SCH (08:45)
[2018-12-07] MEDS: Potassium Chloride 20 MEQ Tab.ER *PTOM PO SCH (08:45)
[2018-12-07] MEDS: FUROSEMIDE 80 MG PO SCH (08:45)
--- NOTE | 2018-12-07 09:21 | PCM.PN ---
- General Info Date of Service: 12/07/18 Admission Dx/Problem (Free Text): Patient is without complaints. She denies fevers, chills, weakness, chest pain, abdominal pain, shortness of breath. The nurses report she had a large BM yesterday was just a little bit of bright red blood around the stool. - Patient Data Vitals - Most Recent: Last Vital Signs Temp 97.7 F 12/07/18 00:00 Pulse 76 12/07/18 00:00 Resp 16 12/07/18 00:00 BP 98/60 12/07/18 00:00 Pulse Ox 95 12/07/18 00:00 Orthostatic Blood Pressure [ 99/56 Standing] Orthostatic Blood Pressure [ 104/48 Sitting] Orthostatic Blood Pressure [ 106/45 Supine] Weight - Most Recent: 170 lb Lab Results Last 24 Hours: Laboratory Results - last 24 hr 12/05/18 12/06/18 12/07/18 Range/Units 12:26 16:05 06:20 WBC 10.6 (4.5-12.0) X10-3/uL RBC 3.07 L (3.23-5.20) x10(6)uL Hgb 9.3 L 8.7 L (11.5-15.5) g/dL Hct 28.3 L 26.7 L (30.0-51.3) % MCV 87.0 (80-96) fL MCH 28.3 (27.7-33.6) pg MCHC 32.6 (32.2-35.4) g/dL RDW 14.9 (11.5-15.5) % Plt Count 258 (125-369) X10(3)uL MPV 7.6 (7.4-10.4) fL Add Manual Diff Yes Neutrophils % (Manual) 75 (46-82) % Lymphocytes % (Manual) 12 L (13-37) % Monocytes % (Manual) 10 (4-12) % Eosinophils % (Manual) 3 (0-5) % Sodium (135-145) mmol/L Potassium (3.5-5.3) mmol/L Chloride (100-110) mmol/L Carbon Dioxide (21-32) mmol/L BUN (7-18) mg/dL Creatinine (0.55-1.02) mg/dL Est Cr Clr Drug Dosing mL/min Estimated GFR (MDRD) (>60) BUN/Creatinine Ratio (9-20) Glucose (80-116) mg/dL Calcium (8.6-10.2) mg/dL Crossmatch See Detail 12/07/18 Range/Units 06:20 WBC (4.5-12.0) X10-3/uL RBC (3.23-5.20) x10(6)uL Hgb (11.5-15.5) g/dL Hct (30.0-51.3) % MCV (80-96) fL MCH (27.7-33.6) pg MCHC (32.2-35.4) g/dL RDW (11.5-15.5) % Plt Count (125-369) X10(3)uL MPV (7.4-10.4) fL Add Manual Diff Neutrophils % (Manual) (46-82) % Lymphocytes % (Manual) (13-37) % Monocytes % (Manual) (4-12) % Eosinophils % (Manual) (0-5) % Sodium 139 (135-145) mmol/L Potassium 3.6 (3.5-5.3) mmol/L Chloride 102 (100-110) mmol/L Carbon Dioxide 29 (21-32) mmol/L BUN 21 H (7-18) mg/dL Creatinine 1.0 (0.55-1.02) mg/dL Est Cr Clr Drug Dosing 34.23 mL/min Estimated GFR (MDRD) 52 L (>60) BUN/Creatinine Ratio 21.0 H (9-20) Glucose 109 (80-116) mg/dL Calcium 8.4 L (8.6-10.2) mg/dL Crossmatch David Results Last 24 Hours: Microbiology 12/05/18 11:35 Urine Culture - Final Urine, Catheterized No Growth Med Orders - Current: Current Medications Acetaminophen (Tylenol) 650 mg PO Q4H PRN PRN Reason: Pain (Mild 1-3)/fever Furosemide (Lasix) 80 mg PO BID@0800,1400 [facility] Last Admin: 12/07/18 08:45 Dose: 80 mg Promethazine HCl 6.25 mg/ (Sodium Chloride) 50.25 mls @ 200 mls/hr IV Q6H PRN PRN Reason: Nausea/Vomiting Levothyroxine Sodium (Levothyroxine) 175 mcg PO DAILY@0600 [facility] Last Admin: 12/07/18 06:16 Dose: 175 mcg Pantoprazole Sodium (Protonix Iv) 40 mg IVPUSH Q24H [facility] Last Admin: 12/06/18 12:35 Dose: 40 mg Polyethylene Glycol (Miralax) 17 gm PO DAILY [facility] Last Admin: 12/07/18 08:45 Dose: 17 gm Potassium Chloride (Klor-Con M20) 20 meq PO BID [facility] Last Admin: 12/07/18 08:45 Dose: 20 meq Sodium Chloride (Saline Flush) 10 ml FLUSH ASDIRECTED PRN PRN Reason: Keep Vein Open Last Admin: 12/06/18 12:41 Dose: 10 ml Discontinued Medications Sodium Chloride (Normal Saline) 500 mls @ 999 mls/hr IV .BOLUS ONE Stop: 12/05/18 11:33 Last Admin: 12/05/18 11:52 Dose: 999 mls/hr Potassium Chloride 10 meq/ (Premix) 100 mls @ 100 mls/hr IV ONETIME ONE Stop: 12/05/18 12:45 Last Admin: 12/05/18 12:11 Dose: 100 mls/hr Sodium Chloride (Normal Saline) 1,000 mls @ 50 mls/hr IV ASDIRECTED [facility] Last Admin: 12/05/18 12:48 Dose: 50 mls/hr Sodium Chloride (Normal Saline) 250 mls @ 100 mls/hr IV ASDIRECTED [facility] Sodium Chloride (Normal Saline) 250 mls @ 100 mls/hr IV ASDIRECTED [facility] Last Admin: 12/05/18 17:56 Dose: 100 mls/hr Levothyroxine Sodium (Synthroid) Confirm Administered Dose 100 mcg .ROUTE .STK- MED ONE Stop: 12/06/18 05:43 Last Admin: 12/06/18 05:58 Dose: 100 mcg Levothyroxine Sodium (Levothyroxine) Confirm Administered Dose 75 mcg .ROUTE .STK-MED ONE Stop: 12/06/18 05:44 Last Admin: 12/06/18 05:57 Dose: Not Given Metoclopramide HCl (Reglan) 10 mg IVPUSH ONETIME ONE Stop: 12/05/18 11:04 Last Admin: 12/05/18 11:52 Dose: 10 mg Pantoprazole Sodium (Protonix Iv) 40 mg IVPUSH ONETIME ONE Stop: 12/05/18 11:47 Last Admin: 12/05/18 12:15 Dose: 40 mg Potassium Chloride (Potassium Chloride Solution) 20 meq PO ONETIME ONE Stop: 12/05/18 11:47 Last Admin: 12/05/18 12:30 Dose: 20 meq Potassium Chloride (Klor-Con M20) 20 meq PO TID [facility] Last Admin: 12/05/18 20:30 Dose: 20 meq - Exam General: Alert, Cooperative Lungs: Clear to Auscultation, Normal Respiratory Effort Cardiovascular: Regular Rate, Regular Rhythm, No Murmurs GI/Abdominal Exam: Soft, Non-Tender - Problem List & Annotations (1) Elevated troponin SNOMED Code(s): 320772306, 872693929, 597034624 Code(s): R74.8 - ABNORMAL LEVELS OF OTHER SERUM ENZYMES Status: Acute Current Visit: Yes (2) Hypokalemia SNOMED Code(s): 32238718 Code(s): E87.6 - HYPOKALEMIA Status: Acute Current Visit: Yes (3) Blood loss anemia SNOMED Code(s): 131323929 Code(s): D50.0 - IRON DEFICIENCY ANEMIA SECONDARY TO BLOOD LOSS (CHRONIC) Status: Acute Current Visit: Yes (4) Hypokalemia SNOMED Code(s): 23564040 Code(s): E87.6 - HYPOKALEMIA Status: Acute Current Visit: Yes (5) Syncope SNOMED Code(s): 119566545 Code(s): R55 - SYNCOPE AND COLLAPSE Status: Acute Current Visit: Yes Qualifiers: Syncope type: unspecified Qualified Code(s): R55 - Syncope and collapse (6) Palliative care status SNOMED Code(s): 006485873 Code(s): Z51.5 - ENCOUNTER FOR PALLIATIVE CARE Status: Acute Current Visit: Yes (7) Elevated troponin SNOMED Code(s): 190911464, 671029916, 026503227 Code(s): R74.8 - ABNORMAL LEVELS OF OTHER SERUM ENZYMES Status: Acute Current Visit: Yes - Problem List Review Problem List Initiated/Reviewed/Updated: Yes - My Orders Last 24 Hours: My Active Orders 12/06/18 09:00 Polyethylene Glycol 3350 [MiraLAX] 17 gm PO DAILY Potassium Chloride [Klor-Con M20] 20 meq PO BID 12/06/18 12:00 Pantoprazole [ProTONIX IV] 40 mg IVPUSH Q24H 12/06/18 13:12 Convert IV to Saline Lock [OM.PC] Routine 12/06/18 Lunch Cardiac Diet [Heart Healthy Diet] [DIET] - Plan Plan:: 1. Patient does not want any scoping or any invasive procedures done. The son confers with this. 2. We'll discharge to home tolerating weekly hemoglobins. If the hemoglobin gets below 6.9 to proceed with a transfusion. 3. PT/OT/home health.
--- NOTE | 2018-12-07 09:26 | PCM.DCSUM1 ---
Discharge Summary - Hospital Course HPI Initial Comments: Hospital course-she was admitted and given 2 units of RBCs. Her aspirin was stopped. Troponin was elevated slightly and went up 6 hours that went back down 6 hours later. EKG had no acute changes. Patients hemoglobin was watched and it remained between 8.9-9. She had 1 BM with a little red stool around the BM. She had no abdominal pain and she felt much better after she had the transfusions. She still weak when she walks but does well with a walker. Her son and her state they don't want anything invasive including scoping. She appeared to be stable so discharge her back to [facility] with home health, PT/OT. Will check her hemoglobin 1 time a week and if it's 6.9 or lower she should've a transfusion. Hopefully it will stabilize. Will continue the iron. We'll stop her aspirin. Brief History: This is 88-year-old female patient that recently moved from [facility] to be closer to her son. She delivered the [facility]. For the last 3 days she's felt. She has had nausea, vomiting and then she passed out for 3 minutes today. She is brought to the ER found to have a hemoglobin of 7. She denies chest pain although occasionally she says her chest get tight but hasn't recently. She says she was given some at the home and she didn't have a BM for several days and strained that she had some bleeding. Her son told the nurse that she had a EGD several years ago that was negative. 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 She denies abdominal pain, fevers, chills. She does take aspirin a day according to her records Diagnosis: Stroke: No - Discharge Data Discharge Date: 12/07/18 Discharge Disposition: DC/Tfer to [place] [address] Condition: Good - Discharge Diagnosis/Problem(s) (1) Elevated troponin SNOMED Code(s): 958691821, 391366584, 775924640 ICD Code: R74.8 - ABNORMAL LEVELS OF OTHER SERUM ENZYMES Status: Acute Current Visit: Yes (2) Hypokalemia SNOMED Code(s): 57531470 ICD Code: E87.6 - HYPOKALEMIA Status: Acute Current Visit: Yes (3) Blood loss anemia SNOMED Code(s): 965661471 ICD Code: D50.0 - IRON DEFICIENCY ANEMIA SECONDARY TO BLOOD LOSS (CHRONIC) Status: Acute Current Visit: Yes (4) Hypokalemia SNOMED Code(s): 50669442 ICD Code: E87.6 - HYPOKALEMIA Status: Acute Current Visit: Yes (5) Syncope SNOMED Code(s): 261255647 ICD Code: R55 - SYNCOPE AND COLLAPSE Status: Acute Current Visit: Yes Qualifiers: Syncope type: unspecified Qualified Code(s): R55 - Syncope and collapse (6) Palliative care status SNOMED Code(s): 662276137 ICD Code: Z51.5 - ENCOUNTER FOR PALLIATIVE CARE Status: Acute Current Visit: Yes (7) Elevated troponin SNOMED Code(s): 987348293, 372721874, 209690129 ICD Code: R74.8 - ABNORMAL LEVELS OF OTHER SERUM ENZYMES Status: Acute Current Visit: Yes - Patient Summary/Data Consults: Consultations 12/05/18 12:11 Consult to Palliative Care [CONS] Routine Comment: Physician Instructions: - Patient Instructions Diet: Heart Healthy Diet, Low Sodium Activity: As Tolerated Driving: Do Not Drive Showering/Bathing: May Shower Other/Special Instructions: 1. DC to [facility]. 2. Home health, PT/OT for daily weights, med teaching, strengthening, ADLs. 3. Recheck with Jayne Angelo in 1 week. 4. Hemoglobin and hematocrit this Thursday and weekly. If it drops to 6.9 she'll need one units transfused. - Discharge Plan Prescriptions/Med Rec: Polyethylene Glycol 3350 [MiraLAX] 17 gm PO DAILY #500 g Home Medications: Home Meds Calcium Carb&Cit/D3/Phytostrol [Citracal D + Heart Health] 1 tab PO DAILY [History] Cholestyramine/Sucrose [Cholestyramine] 4 gm PO DAILY 12/05/18 [History] Cyanocobalamin (Vitamin B12) [Vitamin B12] 1,000 mcg IM Q30D 12/05/18 [History] Ferrous Sulfate 325 mg PO DAILY 12/05/18 [History] Furosemide 80 mg PO BID@08,12 12/05/18 [History] Levothyroxine Sodium [Levo-T] 175 mcg PO DAILY 12/05/18 [History] Loperamide HCl [Loperamide] 2 mg PO TID PRN 08/18/19 [History] Multivitamins [Tab-A-Karen] 1 tab PO DAILY 12/05/18 [History] Omeprazole 20 mg PO BIDAC 12/05/18 [History] Potassium Chloride 20 meq PO DAILY 12/05/18 [History] atorvaSTATin Calcium [Lipitor] 20 mg PO BEDTIME 12/05/18 [History] metOLazone [Zaroxolyn] 2.5 mg PO MOTH 12/05/18 [History] Polyethylene Glycol 3350 [MiraLAX] 17 gm PO DAILY #500 g 12/07/18 [Rx] Patient Handouts: Fall Prevention in Hospitals, Adult, Syncope, [id number], Venous Thromboembolism Prevention Forms: ED Department Discharge Referrals: Krysten Woods NP [Primary Care Provider] - - Discharge Summary/Plan Comment DC Time >30 min.: No - Patient Data Vitals - Most Recent: Last Vital Signs Temp 97.7 F 12/07/18 00:00 Pulse 76 12/07/18 00:00 Resp 16 12/07/18 00:00 BP 98/60 12/07/18 00:00 Pulse Ox 95 12/07/18 00:00 Orthostatic Blood Pressure [ 99/56 Standing] Orthostatic Blood Pressure [ 104/48 Sitting] Orthostatic Blood Pressure [ 106/45 Supine] Weight - Most Recent: 170 lb Lab Results - Last 24 hrs: Laboratory Results - last 24 hr 12/05/18 12/06/18 12/07/18 Range/Units 12:26 16:05 06:20 WBC 10.6 (4.5-12.0) X10-3/uL RBC 3.07 L (3.23-5.20) x10(6)uL Hgb 9.3 L 8.7 L (11.5-15.5) g/dL Hct 28.3 L 26.7 L (30.0-51.3) % MCV 87.0 (80-96) fL MCH 28.3 (27.7-33.6) pg MCHC 32.6 (32.2-35.4) g/dL RDW 14.9 (11.5-15.5) % Plt Count 258 (125-369) X10(3)uL MPV 7.6 (7.4-10.4) fL Add Manual Diff Yes Neutrophils % (Manual) 75 (46-82) % Lymphocytes % (Manual) 12 L (13-37) % Monocytes % (Manual) 10 (4-12) % Eosinophils % (Manual) 3 (0-5) % Sodium (135-145) mmol/L Potassium (3.5-5.3) mmol/L Chloride (100-110) mmol/L Carbon Dioxide (21-32) mmol/L BUN (7-18) mg/dL Creatinine (0.55-1.02) mg/dL Est Cr Clr Drug Dosing mL/min Estimated GFR (MDRD) (>60) BUN/Creatinine Ratio (9-20) Glucose (80-116) mg/dL Calcium (8.6-10.2) mg/dL Crossmatch See Detail 12/07/18 Range/Units 06:20 WBC (4.5-12.0) X10-3/uL RBC (3.23-5.20) x10(6)uL Hgb (11.5-15.5) g/dL Hct (30.0-51.3) % MCV (80-96) fL MCH (27.7-33.6) pg MCHC (32.2-35.4) g/dL RDW (11.5-15.5) % Plt Count (125-369) X10(3)uL MPV (7.4-10.4) fL Add Manual Diff Neutrophils % (Manual) (46-82) % Lymphocytes % (Manual) (13-37) % Monocytes % (Manual) (4-12) % Eosinophils % (Manual) (0-5) % Sodium 139 (135-145) mmol/L Potassium 3.6 (3.5-5.3) mmol/L Chloride 102 (100-110) mmol/L Carbon Dioxide 29 (21-32) mmol/L BUN 21 H (7-18) mg/dL Creatinine 1.0 (0.55-1.02) mg/dL Est Cr Clr Drug Dosing 34.23 mL/min Estimated GFR (MDRD) 52 L (>60) BUN/Creatinine Ratio 21.0 H (9-20) Glucose 109 (80-116) mg/dL Calcium 8.4 L (8.6-10.2) mg/dL Crossmatch MINDA Results - Last 24 hrs: Microbiology 12/05/18 11:35 Urine Culture - Final Urine, Catheterized No Growth Med Orders - Current: Current Medications Acetaminophen (Tylenol) 650 mg PO Q4H PRN PRN Reason: Pain (Mild 1-3)/fever Furosemide (Lasix) 80 mg PO BID@0800,1400 [facility] Last Admin: 12/07/18 08:45 Dose: 80 mg Promethazine HCl 6.25 mg/ (Sodium Chloride) 50.25 mls @ 200 mls/hr IV Q6H PRN PRN Reason: Nausea/Vomiting Levothyroxine Sodium (Levothyroxine) 175 mcg PO DAILY@0600 [facility] Last Admin: 12/07/18 06:16 Dose: 175 mcg Pantoprazole Sodium (Protonix Iv) 40 mg IVPUSH Q24H [facility] Last Admin: 12/06/18 12:35 Dose: 40 mg Polyethylene Glycol (Miralax) 17 gm PO DAILY [facility] Last Admin: 12/07/18 08:45 Dose: 17 gm Potassium Chloride (Klor-Con M20) 20 meq PO BID [facility] Last Admin: 12/07/18 08:45 Dose: 20 meq Sodium Chloride (Saline Flush) 10 ml FLUSH ASDIRECTED PRN PRN Reason: Keep Vein Open Last Admin: 12/06/18 12:41 Dose: 10 ml Discontinued Medications Sodium Chloride (Normal Saline) 500 mls @ 999 mls/hr IV .BOLUS ONE Stop: 12/05/18 11:33 Last Admin: 12/05/18 11:52 Dose: 999 mls/hr Potassium Chloride 10 meq/ (Premix) 100 mls @ 100 mls/hr IV ONETIME ONE Stop: 12/05/18 12:45 Last Admin: 12/05/18 12:11 Dose: 100 mls/hr Sodium Chloride (Normal Saline) 1,000 mls @ 50 mls/hr IV ASDIRECTED [facility] Last Admin: 12/05/18 12:48 Dose: 50 mls/hr Sodium Chloride (Normal Saline) 250 mls @ 100 mls/hr IV ASDIRECTED [facility]NEY Sodium Chloride (Normal Saline) 250 mls @ 100 mls/hr IV ASDIRECTED [facility] Last Admin: 12/05/18 17:56 Dose: 100 mls/hr Levothyroxine Sodium (Synthroid) Confirm Administered Dose 100 mcg .ROUTE .STK- MED ONE Stop: 12/06/18 05:43 Last Admin: 12/06/18 05:58 Dose: 100 mcg Levothyroxine Sodium (Levothyroxine) Confirm Administered Dose 75 mcg .ROUTE .STK-MED ONE Stop: 12/06/18 05:44 Last Admin: 12/06/18 05:57 Dose: Not Given Metoclopramide HCl (Reglan) 10 mg IVPUSH ONETIME ONE Stop: 12/05/18 11:04 Last Admin: 12/05/18 11:52 Dose: 10 mg Pantoprazole Sodium (Protonix Iv) 40 mg IVPUSH ONETIME ONE Stop: 12/05/18 11:47 Last Admin: 12/05/18 12:15 Dose: 40 mg Potassium Chloride (Potassium Chloride Solution) 20 meq PO ONETIME ONE Stop: 12/05/18 11:47 Last Admin: 12/05/18 12:30 Dose: 20 meq Potassium Chloride (Klor-Con M20) 20 meq PO TID [facility] Last Admin: 12/05/18 20:30 Dose: 20 meq
== END 2018-12-07 11:10 ==
LOC: FB.ED 10:22 → UNDOADMOB 11:56 → FB.MS 11:56
PROVIDERS: ADMIT Family Medicine; ATTEND Family Medicine
DX: D50.0 Iron deficiency anemia secondary to blood loss (chronic) (principal); R74.8 Abnormal levels of other serum enzymes; E87.6 Hypokalemia; I21.9 Acute myocardial infarction, unspecified; I11.0 Hypertensive heart disease with heart failure; I50.9 Heart failure, unspecified; E78.00 Pure hypercholesterolemia, unspecified; K21.9 Gastro-esophageal reflux disease without esophagitis; M19.90 Unspecified osteoarthritis, unspecified site; E03.9 Hypothyroidism, unspecified; Z79.899 Other long term (current) drug therapy
CPT/HCPCS: 36415; 36430; 71045; 80048; 80053; 81001; 82272; 83735; 84484; 85014; 85018; 85025; 85610; 86850; 86900; 86901; 86920; 86922; 87086; 93005; 96361; 96365; 96375; 96376; 99285; A9270; C9113; G0378; J2765; J3480; J7030; J7040; J7050; P9016; 93010; 99217; 99219; 99225